=== PATIENT | female | born 1980 | race Caucasian/White ===

== ENCOUNTER 2018-06-13 15:32 | Emergency (ER) | payer OTHER, SELFPAY ==
[2018-06-13 15:45] VITALS: BP 153/100; PULSE 88; RESP 13; TEMP 36.1; O2SAT 98
--- NOTE | 2018-06-13 16:28 | PC.NURSE ---
pt reports, cutting a ziptie on the bike, pocket knife slipped and obtained left hand ,below left thumb, with bleeding, preassure drsg applied with elevation, distal cms intact. family at .
--- NOTE | 2018-06-13 17:07 | ED_ITS ---
HPI - Wound/Laceration General Chief Complaint: Wound/Laceration Stated Complaint: accidentally stabbed hand with knife Time Seen by Provider: 06/13/18 17:07 Source: patient Mode of arrival: ambulatory Limitations: no limitations History of Present Illness HPI narrative: 38-year-old female [id number] here for evaluation of a laceration to her left hand. Patient states she was using a knife to cut a zip tie off her bike when it slipped and cut her in the hand. She does not know when her last tetanus shot was. Wrapped it and came to the emergency department for evaluation. Related Data Previous Rx's Medication Instructions Recorded cephalexin [Keflex] 500 mg PO QID 5 Days #20 cap 06/13/18 hydrocodone-acetaminophen [[place]] 1 tab PO Q4-6H PRN #10 tab 06/13/18 Allergies Allergy/AdvReac Type Severity Reaction Status Date / Time No Known Drug Allergies Allergy Unverified 06/02/18 14:01 Review of Systems Constitutional Denies fever(s) and Denies weakness Cardiovascular Denies chest pain and Denies dyspnea Respiratory Denies dyspnea Gastrointestinal Gastrointestinal: Denies abdominal pain Musculoskeletal Denies myalgias and Denies arthralgias Integumentary/Breasts Comments: Cut to the left hand Neurologic Denies paresthesias and Denies weakness Hematologic/Lymphatic Comments: Not on anticoagulation PFSH Medical History Diverticulitis large intestine (Acute) Hx of hysterectomy (Resolved) Surgical History History of (Resolved) History of hysterectomy for benign disease (Resolved) History of tonsillectomy (Resolved) Hx of LASIK (Resolved) Hx of LASIK (Resolved) Hx of section (Resolved) Hx of tonsillectomy (Resolved) Social History marital status: household members: spouse and children occupational status: employed Smoking Status: Never smoker alcohol intake: current substance use type: does not use Exam Initial Vital Signs Initial Vital Signs: Vital Signs Temperature 97 F L 06/13/18 15:45 Pulse Rate 88 06/13/18 15:45 Respiratory Rate 13 06/13/18 15:45 Blood Pressure 153/100 H 06/13/18 15:45 Pulse Oximetry 98 06/13/18 15:45 Const General: cooperative, healthy appearing, comfortable, well developed, well groomed and No acute distress Orientation: alert, awake and oriented x3 HENMT Head: normal to inspection and normocephalic Cardio Pulses: radial pulses present on the left Skin Other: 3 cm laceration on the dorsum of the left hand in between the thumb and the index finger. Does have pulsating bleeding. Neuro General: alert, awake and oriented x3 Sensory Exam: no sensory deficits noted Extrem Other: Left wrist unremarkable. Patient able to flex and extend both active and passive and against resistance to the MCP joint and IP joint of the thumb MCP GI p.m. PIP joint of the index finger. Psych Appearance: grossly normal and well kempt Procedures Laceration Repair Laceration 1: Site: hand Side (If applicable): left Size (cm): 2 Description: linear Depth: involves muscle layer Local Anesthetic: lidocaine 1% and with epi Amount of anesthesia used (mL): 6 Pre-repair: wound explored and deep structures intact Skin layer closed with: nylon Size (cm): 5-0 Number of sutures: 5 Technique: simple, interrupted Course Orders Ordered: Discontinued Medications Diphtheria/Tetanus/Acell Pertussis (Adacel) 0.5 ml IM .ONCE ONE Stop: 06/13/18 18:12 Vital Signs - 8 hr 06/13/18 15:45 06/13/18 18:19 Temperature 97 F L Pulse Rate 88 84 Respiratory Rate 13 16 Blood Pressure 153/100 H Blood Pressure [Right Arm] 135/85 Pulse Oximetry 98 99 MDM - Wound/Laceration MDM Narrative Medical decision making narrative: Patient is neurovascularly intact. Initially after placement of Gel-Foam the bleeding which did appear to be arterial had completely stopped. Stitches were placed however when the patient moved her thumb it did start bleeding again. The initial stitches were removed and extensive exploration of the wound was performed without success and finding the source of the bleeding. More Gel-Foam was placed and a pressure dressing was placed over the skin for approximately 20 min. After this a portion of the Gel-Foam was removed and there was no active bleeding. The skin was closed with 5 nylon stitches as described above. There was a small amount of Gelfoam left in the wound. Another pressure dressing was applied. Patient was observed in the emergency department for approximately another hour without continued bleeding. Will send the patient home on antibiotics due to the exploration. Was sent home with pain medication. Patient given return precautions. She expressed understanding and agreement plan. Discharge Plan Departure Patient Disposition: Home Clinical Impression: Laceration Instructions: DI for Laceration Repair Activity Restrictions/Additional Instructions: The stitches do need to be removed in 7-10 days. Keep the dressing on like we discussed. Return to the emergency department like we discussed. If it bleeds through the dressing this evening I do recommend he return to the emergency department. Take the antibiotics as directed. Contact her primary care doctor for follow-up. Prescriptions: New hydrocodone-acetaminophen [[place]] 5-325 mg tablet 1 tab PO Q4-6H PRN (Reason: pain) Qty: 10 RF: 0 cephalexin [Keflex] 500 mg capsule 500 mg PO QID 5 Days Qty: 20 RF: 0
--- NOTE | 2018-06-13 18:13 | PC.NURSE ---
arterial bleed left hand, surgifoam used, sutured with internal and external, with movement, pt continue to have squirting bleeding, reopened sutured, suctions and exploration by dr nye, cauterized, surgifoam reapplied with coban at this time. estimated blood lost 100ml while in er. pt denies dizziness or shortness of breath, felt cold, warm blanket applied. skin warm dry pink. family at bs.
[2018-06-13 18:19] VITALS: BP 135/85; PULSE 84; RESP 16; O2SAT 99
--- NOTE | 2018-06-13 18:20 | PC.NURSE ---
left hand with preassure dressing.
[2018-06-13] MEDS: TET,DIPH,PERTUSS(ACELL),VAC/PF 0.5 ML SYRINGE IM (19:18)
[2018-06-13 19:42] VITALS: BP 126/75; PULSE 87; RESP 18; O2SAT 99
[2018-06-13] MEDS: HYDROCODONE/ACET 5/325 PREPACK 1 BOTTLE MISC (20:33)
[2018-06-13] MEDS: cephALEXin 250 MG CAPSULE 500 MG PO (20:33)
--- NOTE | 2018-06-14 08:47 | PC.NURSE ---
pt came in for recheck per dr nye, stand by assist with dr nye, suture intact , hemostasis, some swelling and echymosis, full range of motion, distal cms intact. left hand washed with hibiclens, running water, dried. bacitracin ointment applied with non stick telfa with large kerlix and tape. reviewed s\sxs of infection, verbal understanding instructions, return prn.
== END 2018-06-13 20:40 | disposition home or self-care (01) ==
PROVIDERS: Emergency Provider Emergency Medicine
DX: S61.412A Laceration without foreign body of left hand, initial encounter (principal); W26.0XXA Contact with knife, initial encounter
CPT/HCPCS: 12001; 90471; 99283; 90715

== ENCOUNTER 2018-06-22 14:40 | Emergency (ER) | payer OTHER, SELFPAY ==
[2018-06-22 14:48] VITALS: BP 156/107; PULSE 85; RESP 14; TEMP 37; O2SAT 99
--- NOTE | 2018-06-22 14:56 | ED.SKABFB ---
HPI - Skin/Abscess/Foreign Bdy General Chief complaint: Skin/Abscess/Foreign Body Stated complaint: stitch removal Time Seen by Provider: 06/22/18 14:56 Source: patient Mode of arrival: ambulatory Limitations: no limitations History of Present Illness HPI narrative: Patient is here for suture removal of the laceration to her left hand Related Data Allergies Allergy/AdvReac Type Severity Reaction Status Date / Time No Known Drug Allergies Allergy Unverified 06/19/18 14:40 Review of Systems Constitutional Denies fever(s) Integumentary/Breasts Comments: Laceration healing well Hematologic/Lymphatic Comments: Not on anticoagulation PFSH Medical History Diverticulitis large intestine (Acute) Hx of hysterectomy (Resolved) Surgical History History of (Resolved) History of hysterectomy for benign disease (Resolved) History of tonsillectomy (Resolved) Hx of LASIK (Resolved) Hx of LASIK (Resolved) Hx of section (Resolved) Hx of tonsillectomy (Resolved) Family History Father Hypertension Mother Hypertension Heart disease Diabetes mellitus Social History marital status: household members: spouse and children occupational status: employed Smoking Status: Never smoker alcohol intake: current substance use type: does not use Social History marital status: household members: spouse and children occupational status: employed Smoking Status: Never smoker alcohol intake: current substance use type: does not use Exam Initial Vital Signs Initial Vital Signs: Vital Signs Temperature 98.6 F 06/22/18 14:48 Pulse Rate 85 06/22/18 14:48 Respiratory Rate 14 06/22/18 14:48 Blood Pressure 156/107 H 06/22/18 14:48 Pulse Oximetry 99 06/22/18 14:48 Const General: cooperative, comfortable, well developed, well groomed and No acute distress Resp Effort & Inspection: normal respiratory effort Skin Other: Skin looks well. No surrounding erythema. No signs of infection. Course Vital Signs - 8 hr 06/22/18 14:48 Temperature 98.6 F Pulse Rate 85 Respiratory Rate 14 Blood Pressure 156/107 H Pulse Oximetry 99 MDM - Skin/Abscess/Foreign Bdy MDM Narrative Medical decision making narrative: No signs of infection. Sutures were removed by nursing staff. Patient was given return precautions. She expressed understanding and agreement with plan. Discharge Plan Departure Patient Disposition: Home Clinical Impression: Encounter for removal of sutures Instructions: DI for Suture Removal Activity Restrictions/Additional Instructions: You can use your thumb as much as possible to help with the stiffness. Return to the emergency department for any new or worsening symptoms
--- NOTE | 2018-06-22 15:11 | PC.NURSE ---
Pt w/ well healed suture line on left hand. Dr. Ceballos evaluated and cleared for suture removal. Removed sutures w/o difficulty. Added steri strips for support.
== END 2018-06-22 15:13 | disposition home or self-care (01) ==
PROVIDERS: Emergency Provider Emergency Medicine
DX: Z48.02 Encounter for removal of sutures (principal)
CPT/HCPCS: 99281; 99282

== ENCOUNTER → 2020-02-05 08:40 | Outpatient (CLI) | payer OTHER, SELFPAY ==
[2020-02-06 16:03] LABS: COVID19 Sendout Not Detected (Not Detect)
== END ==
PROVIDERS: Visit Provider Physician Assistant
DX: Z11.59 Encounter for screening for other viral diseases (principal)
CPT/HCPCS: 87635

== ENCOUNTER 2020-02-08 07:41 | Day surgery (SDC) | payer OTHER, SELFPAY ==
--- NOTE | 2020-02-08 | PATH_ITS ---
[facility] Accession Number: [id number] . 01 Material submitted: . colon - POLYP AT 20CM . 01 Clinical history: . SCREENING COLONOSCOPY . 02 Diagnosis: Colon, Polyp at 20 cm, Biopsy: Tubular adenoma. The excision appears complete. MRV 02/11/2020 1040 Local . 02 Electronically signed: . Marisa Dobbs MD, Pathologist NPI- [id number] . 01 Gross description: . POLYP AT 20CM: Received in formalin is 1 fragment(s) of hall, soft tissue measuring 1.2 x 0.6 x 1.0 cm which is trisected and submitted entirely in 1 cassette(s) /HARRIET 02/10/2020 0049 Local . 02 Pathologist provided ICD-10: D12.6 . 02 CPT . 549503 Performed at: 01 [facility] [address] [id number] MD Zak Araujo MD Phone: [phone] Performed at: [facility] [address] [place], [place] [id number] MD Marisa Dobbs MD Phone: [phone]
[2020-02-08 08:00] VITALS: BP 113/77; PULSE 72; RESP 18; TEMP 36.4; O2SAT 98; BMI 38.7
--- NOTE | 2020-02-08 09:05 | P.HP_ITS ---
History of Present Illness History of Present Illness Date Patient Seen: 02/08/20 Time Patient Seen: 09:05 Chief complaint: SCREENING COLONOSCOPY Narrative: The patient is a woman who has had multiple bouts of diverticulitis. She has had a scope done 5 or 6 years ago. She believes 4 polyps were removed at that time. She is here for colonoscopy because of her history of polyps and because we need to make sure there is no neoplastic process involved with her co lonic inflammation Patient History Medical History Diverticulitis large intestine (Acute) Surgical History History of (Resolved) History of hysterectomy for benign disease (Resolved) History of tonsillectomy (Resolved) Hx of section (Resolved) Hx of hysterectomy (Resolved) Hx of LASIK (Resolved) Hx of LASIK (Resolved) Hx of tonsillectomy (Resolved) Family & Social History Family History Father Hypertension Mother Hypertension Heart disease Diabetes mellitus Social History: household members spouse,children Tobacco & Substance use: Smoking Status Never smoker alcohol intake current alcohol intake frequency a few times a week Substance Use Type does not use Meds Home Medications and Allergies Home Medications Medication Instructions Recorded Confirmed Type No Known Home Medications 02/08/20 02/08/20 History Allergies Allergy/AdvReac Type Severity Reaction Status Date / Time No Known Drug Allergies Allergy Verified 02/08/20 07:58 Review of Systems Review of Systems ROS: Yes All systems reviewed with the patient and are negative except as otherwise documented Exam Vital Signs (past 8 hours): - 02/08/20 08:00 Temperature 97.6 F Pulse Rate 72 Respiratory Rate 18 Blood Pressure 113/77 Pulse Oximetry 98 Oxygen Delivery Method Room Air Narrative Exam Narrative: Pleasant cooperative patient no apparent distress. Lungs are clear to auscultation. No rales or rhonchi. Heart regular rate and rhythm no murmur gallop. Abdomen is soft nontender without mass. No obvious hernias. Patient is alert and oriented x3. Assessment & Plan Assessment & Plan narrative: The patient for a screening colonoscopy. I have discussed the procedure with them. Risks of bleeding, perforation which would necessitate major operation, failure to find remove all lesions, the potential tattoo were all discussed. All questions were answered. They wished to proceed.
--- NOTE | 2020-02-08 09:07 | PM.PREOP ---
Pre-operative Note COVID-19 COVID-19 status: Negative Result date/Date tested (Pos, Neg/Pending): 02/05/20 Interval Note History & Physical reviewed/Exam performed by Physician: Yes Changes to H&P: No ASA Class (for procedural sedation): I
[2020-02-08] MEDS: MIDAZOLAM 5 MG/5 ML VIAL IV (09:10)
[2020-02-08] MEDS: fentaNYL 250 MCG/5 ML INJ IV (09:10)
[2020-02-08 09:44] VITALS: BP 118/74; PULSE 71; RESP 15; TEMP 36.8; O2SAT 97
--- NOTE | 2020-02-08 09:46 | PM.OP.ENDO ---
Operative Date/Time/Diagnoses Date of procedure: 02/08/20 Time of procedure: 09:46 Pre-op diagnosis: History of polyps. History of diverticulitis multiple episodes. Last scope about 5 years ago. Post-op diagnosis: same (I removed 1 large polyp at 20 cm from the anal verge. It was on of distinct stalk. I could not get beyond 40 due to tortuosity and narrowing.) Procedure & Clinicians Study performed: Flexible sigmoidoscopy(colonoscopy started but abandoned) with hot snare polypectomy Same procedure as scheduled: Yes Indications: Patient with history of polyps and diverticulitis. Surgeon: Ricco Duncan Procedure Notes SCOAP/Timeout: Perform Procedure in detail: Patient is placed in left lateral decubitus position underwent IV sedation directed by the surgeon consisting of fentanyl and Versed. Digital exam was unremarkable. The scope was inserted and advanced to about 40 cm. The going was quite slow and the colon to this point was quite tortuous. I could not get beyond this however. I could not distend the colon adequately and the turns were such that I could not negotiate the. I suspect this is due to the nature of her diverticulitis. The patient was repositioned in still could get no further. After attempting for about 20 minutes to get beyond this point I backed the scope out. I encountered a very large polyp at 20 cm and snared it through its stalk. It appeared to be completely removed. The scope was removed and the patient appeared to tolerate the procedure well. Scope withdrawal time: Not applicable Sedation minutes: 28 Findings: diverticulitis (History of multiple episodes), diverticulosis and polyp Specimen(s): other (Polyp) Complications: none Post-procedure Recommendations: Other recommendation (Will schedule barium enema in several weeks once polypectomy site is healed) Follow up: weeks (4 after barium enema) Disposition: PACU
--- NOTE | 2020-02-08 09:48 | SUR.PHASEI ---
Pt received to PACU after MAC. Airway patent, self maintained. Report from MINNIE Catherine.
[2020-02-08 09:49] VITALS: BP 107/77; PULSE 90; RESP 14; O2SAT 98
[2020-02-08 09:54] VITALS: BP 117/78; PULSE 70; RESP 15; O2SAT 99
[2020-02-08 10:01] VITALS: BP 130/89; PULSE 77; RESP 13; TEMP 37; O2SAT 99
[2020-02-08 10:06] VITALS: BP 130/89; PULSE 67; RESP 11; TEMP 37; O2SAT 99
--- NOTE | 2020-02-08 14:43 | SUR.PHASEII ---
1018 late entry 900 ml LR infused
== END 2020-02-08 10:25 | disposition home or self-care (01) ==
PROVIDERS: Referring Provider Specialist; Visit Provider Specialist
PROC: 0DJD8ZZ Inspection of Lower Intestinal Tract, Via Natural or Artificial Opening Endoscopic (ICD-10-PCS; CPT 45378; principal; 2020-02-08 08:30)
DX: Z12.11 Encounter for screening for malignant neoplasm of colon (principal); Z86.010 Personal history of colon polyps; K57.30 Diverticulosis of large intestine without perforation or abscess without bleeding; K57.32 Diverticulitis of large intestine without perforation or abscess without bleeding; D12.6 Benign neoplasm of colon, unspecified
CPT/HCPCS: 45385; 99152; 99153; J2250; J3010

== ENCOUNTER → 2020-03-01 10:03 | Outpatient (CLI) | payer OTHER, SELFPAY ==
--- NOTE | 2020-03-01 10:04 | DI.RAD.S_ITS ---
PROCEDURE: FL BARIUM ENEMA W AIR CONTRAST INDICATIONS: incomplete colonoscopy due to sigmoid diverticular disease COMPARISON: None. FINDINGS: KUB: Pre-procedural derrick boat leverman film demonstrates a normal bowel gas pattern. No suspicious abdominal calcifications. Visualized solid organ contours are normal in size. No suspicious bony lesions. Colon: There is adequate air-contrast opacification from the rectum to the cecum. No evidence for strictures, ulcers, polyps, or masses are seen. Haustral folds are normal in thickness throughout. There are numerous scattered colonic diverticula noted in the descending colon and sigmoid colon and a scant amount of diverticula near the hepatic flexure. IMPRESSION: Numerous scattered descending and sigmoid colon diverticula with scant diverticula noted near the hepatic flexure. Otherwise, negative double-contrast barium enema. Dictated by: Thuan Hodgson M.D. on 03/01/2020 at 12:42 Approved by: Thuan Hodgson M.D. on 03/01/2020 at 12:59
== END ==
PROVIDERS: Referring Provider Specialist; Visit Provider Specialist
DX: Z12.11 Encounter for screening for malignant neoplasm of colon (principal); K57.32 Diverticulitis of large intestine without perforation or abscess without bleeding; Z86.010 Personal history of colon polyps
CPT/HCPCS: 74280

== ENCOUNTER → 2020-03-31 09:02 | Outpatient (CLI) | payer OTHER, SELFPAY ==
[2020-03-31 10:39] LABS: COVID19 -Nasal RAPID Negative (Negative)
== END ==
PROVIDERS: Visit Provider Specialist
DX: Z11.59 Encounter for screening for other viral diseases (principal); Z01.812 Encounter for preprocedural laboratory examination
CPT/HCPCS: 87635; C9803

== ENCOUNTER 2020-04-03 06:41 | Inpatient (IN) | payer OTHER, SELFPAY ==
[2020-03-28 09:55] VITALS: BMI 39.3
[2020-04-03] VITALS (14 sets, daily range): BP systolic 111–130; BP diastolic 64–91; PULSE 74–114; RESP 10–29; TEMP 35.7–36.8; O2SAT 95–100; BMI 39.3
--- NOTE | 2020-04-03 | PATH_ITS ---
[facility] Accession Number: [id number] . 01 Material submitted: . PART A: colon - SIGMOID COLON PART B: colon - ANASTOMOSIS RING . 02 Diagnosis: A. Sigmoid Colon, Sigmoidectomy: Segments of colon with diverticulosis and serositis. No evidence of neoplasm. . B. Anastomotic Ring, Excision: Colonic tissue with mild serositis. No evidence of neoplasm. [facility] 04/05/2020 1421 Local . 02 Electronically signed: . Grady Peoples MD, PhD, Pathologist NPI- [id number] . 01 Gross description: . A. Received in formalin, labeled sigmoid colon, and consists of two portions of colon measuring 4.0 cm in length by 2.0 cm in diameter and 8.0 cm in length by 2.8 cm in diameter. The smaller portion of colon has one open and one stapled margin, and the longer portion has two stapled margins. The serosa is hall-pink and smooth with a moderate amount of attached hall-yellow lobulated adipose tissue. Opening reveals a hall-pink mucosa with normal mucosal folds. Also, uncomplicated diverticula are identified within the larger piece of colon. The wall thickness measures up to 0.4 cm. No lymph nodes are identified within the attached adipose tissue. Net Programmer Analyst sections are submitted. . A1 - opened (blue) and stapled (black) margins from smaller portion of colon, patient care representative perpendicular sections. A2 - patient care representative smaller portion of colon. A3 - patient care representative perpendicular sections of larger portion of colon, stapled margins (blue and black). A4-A5 - patient care representative diverticula from larger portion of colon. . B. Received in formalin, labeled anastomotic rings, and consists of two annular portions of bowel with a hall-pink mucosa measuring 2.0 x 1.5 x 1.2 cm and 2.2 x 1.5 x 1.2 cm. Net Programmer Analyst sections are submitted in cassette B1. ([id number]) /MRV 04/04/2020 1218 Local . 02 Pathologist provided ICD-10: K57.32 . 02 CPT . 222776, [id number] Performed at: 01 [facility] [address] [id number] MD Zak Araujo MD Phone: [phone] Performed at: 02 [facility] [address] [place], [place] [id number] MD Marisa Dobbs MD Phone: [phone]
[2020-04-03] MEDS: LACTATED RINGERS 1,000 ML 42 ML IV ×4 (07:37→14:01)
[2020-04-03] MEDS: PIPERACILLIN-TAZO 3.375 GM/50 ML FROZ.PIGGY IV ×2 (08:00→12:52)
[2020-04-03] MEDS: ACETAMINOPHEN IV 1,000 MG/100 ML VIAL 400 MG IV (08:10)
--- NOTE | 2020-04-03 08:13 | PM.PREOP ---
Pre-operative Note Interval Note History & Physical reviewed/Exam performed by Physician: Yes Changes to H&P: No
--- NOTE | 2020-04-03 08:19 | PM.PREOP ---
Pre-operative Note COVID-19 COVID-19 status: Negative Result date/Date tested (Pos, Neg/Pending): 03/31/20 Interval Note History & Physical reviewed/Exam performed by Physician: Yes Changes to H&P: No
--- NOTE | 2020-04-03 08:24 | PM.AN.REGBLK ---
Regional Block Pre-procedure Procedure: Continuous Epidural for Post-operative Pain Management Attending OB provider: Ricco Duncan PMH/ROS narrative: 40 y/o female with chronic/recurrent diverticulitis for lap (poss open) partial colon resection. PMH significant only for mild-intermittent asthma with rare albuterol use. Hx: No personal or family history of anesthesia problems. PSH/Anesthesia history narrative: CS x 2, Hysterectomy, T&A ASA Class: II Medications: Current Medications Generic Name Dose Route Start Last Admin Trade Name Freq PRN Reason Stop Dose Admin Lactated Ringer's 1,000 mls @ 42 mls/hr 04/03/20 07:30 04/03/20 07:37 Lactated Ringers IV 42 mls/hr CONT KHLOE Administration Allergies: Allergies Allergy/AdvReac Type Severity Reaction Status Date / Time No Known Drug Allergies Allergy Verified 04/03/20 07:16 Procedure Insertion date: 04/03/20 Insertion time: 08:00 Prep/Local: betadine x3 Interspace: T11-12 Patient position: sitting Needle: 18 gauge [place] Loss of resistance with: saline GIBSON at (cm): 5 Catheter placed at SKIN (cm): 11 Catheter in SPACE (cm): 6 Insertion: No CSF, No Blood, No Paresthesia with insertion, No Paresthesia with injection and No Test dose reaction Initial Medications TEST DOSE time: 08:03 TEST DOSE: 1.5% lidocaine with epinephrine 1:200k (mL): 3 BOLUS DOSE time: 09:20 BOLUS DOSE (mL): 5 BOLUS DOSE med: 0.25% bupivacaine Infusion INFUSION: 0.125% bupivacaine and with fentanyl 2 mcg/mL Initial rate (mL/hr): 6 Subsequent interventions: infusion started at 10:21 04/04 decreased infusion from 6ml/h to 4. Pt comfortable. 04/05 increased from 4 to 5mL/h. Comfortable with PCEA boluses. LEFT-sided block, T9-L3. Post-procedure Anesthesia time START: 07:45 Anesthesia time END: 08:06 Post-procedure Anesthesia Assessment: Yes CV function: HR/BP stable, Yes Resp function: RR/sat/airway adequate, Yes Post-op hydration adequate, Yes Pain control adequate, Yes Nausea & vomiting absent, Yes Mental status appropriate and No Anesthesia complications
--- NOTE | 2020-04-03 08:42 | SUR.OPER ---
Lithotomy on padded OR bed. [place] Pad Positioner under torso. Head on pillow, arms padded and tucked at sides. Legs secured in padded yellow fins stirrups.
--- NOTE | 2020-04-03 09:26 | P.OP_ITS ---
Operative Date/Time/Diagnoses Date of procedure: 04/03/20 Time of procedure: 09:26 Pre-op diagnosis: Complicated diverticulitis Post-op diagnosis: same Procedure & Clinicians Procedure: 1. Cystoscopy and placement bilateral ureteral localizing stents. Same procedure as scheduled: Yes Indications: Complicated diverticulitis Surgeon: Laurita Atwood Click Yes if Unassisted: Yes Anesthesia Type: General Operative Notes Findings: 1. Urethra-normal caliber and location. 2. Bladder-urothelium normal throughout. Normal position configuration of ureteral orifices bilaterally. Closure Type: not applicable Specimen(s): none sent Estimated Blood Loss (mL): 0 Blood products transfused: none Tourniquet time (min): 0 Procedure in detail: The patient was positioned supine following placement of epidural anesthesia. General anesthesia was then induced. The patient was then repositioned in semi lithotomy and the lower abdomen, genitalia, and perineum were prepped and draped in sterile fashion. The 25 [place] panendoscope was then passed lower urinary tract with findings as described above. A red labeled 5 [place] whistle-tip catheter was then advanced into the right collecting system under direct visualization. Next a blue labeled 5 [place] whistle-tip catheter was advanced into the left upper collecting system. The panendoscope was then backloaded off the ureteral stents. A 16 [place] Pineda catheter was then inserted into the bladder, the balloon inflated 10 cc, and the contents of bladder drained. The 2 whistle-tip catheters were then brought from outside to within the female flange of the Pineda catheter in usual fashion. They were then secured to the Pineda catheter itself using Op site adhesive dressings. The Pineda catheter was then placed to gravity drainage. Dr. Duncan then proceeded with his planned operative intervention, the details of which can be found in his operative report. Complications: none Post-operative Condition: stable Disposition: PACU Plan for aftercare: Acute care
[2020-04-03] MEDS: BUPIVACAINE 0.5% (PF) VIAL 30 ML INJ (09:29)
--- NOTE | 2020-04-03 11:12 | SUR.OPER ---
Chetan Gutierrez RN relief 30 min at 1100
--- NOTE | 2020-04-03 14:51 | P.OP_ITS ---
Operative Date/Time/Diagnoses Date of procedure: 04/03/20 Time of procedure: 14:51 Pre-op diagnosis: Multiple episodes of diverticulitis. Post-op diagnosis: same Procedure & Clinicians Procedure: Laparoscopic sigmoid colon resection with colo colo anastomosis Same procedure as scheduled: Yes Indications: Patient has had multiple episodes of diverticulitis. They are becoming more frequent and progressing and she would like to have that segment of her colon removed because it is completely disrupting her life Anesthesia Type: General Operative Notes Findings: Tortuous sigmoid colon with adhesions to surrounding structures. Soft descending colon normal in appearance with diverticulosis. Healthy viable distal sigmoid and rectum. Closure Type: primary Specimen(s): other (Sigmoid colon in 2 Segments) Prosthetic devices, grafts, tissues, transplants, or devices: None Applied: catheter (Pineda) Estimated Blood Loss (mL): 30 Blood products transfused: none Procedure in detail: An epidural catheter was placed prior to induction. This was for postop pain control. The patient is placed supine on the operating room table and underwent general endotracheal anesthesia. She was placed in lithotomy and stents were placed in her ureters by the urologist. He will dictate a separate note. She was then placed in low lithotomy and prepped and draped in the usual fashion. Small incision was made beneath the umbilicus and carried down under direct vision in the peritoneal cavity. Stay sutures of 0 Vicryl were placed in the fascia. In this on cannula was inserted. The abdomen is insufflated. Four additional ports were placed. One in me in the upper mid abdomen 1 in the left mid abdomen 1 in the right lower abdomen and 1 in the left lower abdomen. Adhesions of the sigmoid colon to the lateral sidewall were take n down using a Harmonic scalpel. Attachments of the left colon to the sidewall were also taken down mobilizing the splenic flexure. When I felt that the proximal colon was mobile enough we divided the normal appearing proximal sigmoid with a left scopic stapling device. Using them on X couple we dissected the mesentery close to the colon wall and dissected below the abnormal appearing segment of the colon. A QUIN stapler was fired across the distal portion. We made a small incision in the lower abdomen and extracted the colon specimen. We delivered the proximal cut end of the colon into this small incision and cleared its edge. This a bowel clamp was placed across it the staple line removed. Using sizers we could not get anything bigger than a 25 into this transected colon. The lumen was rather small all things considered. There was no inflammation of the wall either. We dissected a clear area of colon wall where there were no diverticuli visible. A 25 EEA anvil was inserted into the proximal end of the colon the. The colon edge was oversewn with a running 2 0 Prolene. And then a tie was placed to cinched that down further to the anvil stem. The midline fascia was closed to create a air tight seal in the abdomen is re-insufflated. I could then see the pelvis and the transected distal sigmoid stump. An EEA device was attempted to be inserted but it was clear was not coming anywhere near the end of the colon. A rigid proctoscope followed by occult flexible colonoscope was inserted to examine the colon and it was quite clear that there was a lot of tortuosity in this remaining segment that would have to be straightened and probably a portion removed. The ports were removed the suture line and the fascia was removed and the incision extended to gain access to the pelvis. Adhesions of the distal segment of the sigmoid were divided principally using cautery with careful dissection. The colon was then easily straightened and brought up above the pelvic brim. Visualizing on the inside we chose to resect further down on this sigmoid colon to below the pelvic brim. The mesentery was divided with a Harmonic scalpel. The colon was transected with a TA linear stapling device. The staple line was tested for with an air-leak test using the colonoscope and it appeared to be air tight. The 25 EEA was inserted through the rectum and brought near the end of the colon. I decided to come through the anterior wall and create a and to side anastomosis keeping distance from the staple line used to transect the colon. Then there would be no ischemia between the circular staple in the linear stapled and. The the anvil was inserted on to the spike which had come through the anterior colonic wall. The device was closed in a stapled anastomosis creat ed. It was tested by clamping above the staple line inserting air through the colonoscope. We could also visualize the open anastomosis. There was no air leak. Both donuts were complete. Everything appeared to be viable. The pelvis was irrigated and suctioned free of fluid. The fascia at the midline was closed a running number 0 PDS double-stranded suture. The subcu was loosely reapproximated with 3-0 Vicryl. The skin was closed a running 4-0 Vicryl subcuticular stitch and Steri-Strips in all areas. Attention was turned to the anus. There were 2 skin tags that the concerned the patient. These were removed with cautery and the defect closed with a running 4-0 Vicryl suture line. Patient tolerated the procedure well she was awakened extubated taken recovery area in good condition. Complications: none Post-operative Condition: stable Disposition: PACU Plan for aftercare: In patient care
--- NOTE | 2020-04-03 14:56 | PT-IP ANOTE ---
PT orders received but pt is still in the operating room. Will attempt to see pt morning of 04/04/20.
--- NOTE | 2020-04-03 15:07 | SUR.PHASEI ---
1451 to PACU from OR, very drowsy, attempting to speak, speech slurred. Denies pain/nausea, explained PACU and told her that she could sleep. No non-verbal evidence of pain.
--- NOTE | 2020-04-03 15:12 | SUR.PHASEI ---
aroused spontaneously, asked how long the surgery was. Continues to deny pain/nausea. Skin warm and dry, resp even and regular. Belly was round and soft upon admit to PACU.
--- NOTE | 2020-04-03 15:23 | SUR.PHASEI ---
Report called to ENGAGEMENT LIAISON. Pt awake and comfortable.
[2020-04-03] MEDS: FENT 2MCG/ML BUPIV 0.125% EPI 200 MCG/100 ML PLAST..BAG 6 MCG EPIDURAL ×2 (15:40→20:49)
--- NOTE | 2020-04-03 15:49 | SUR.PHASEI ---
Addendum entered by Dee Dee Kellogg R.N. 04/03/20 15:50: Epidural pump has continued operating as set by Dr. Cross. Settings reviewed with GRIP WRAPPER Original Note: 1535 to room 226, bed down and locked, call light within reach. SCD's on. VSS. Epidural dressing CDI, well secured, abdominal dressing and bandaids remain CDI, belly soft. Pt awake, oriented, john pain/nausea. Clothing bag to the room with her.
[2020-04-03] MEDS: LACTATED RINGERS 1,000 ML 125 ML IV (16:23)
--- NOTE | 2020-04-03 16:57 | PC.NURSE ---
Admission Note: Pt arrives from PACU s/p sigmoid colectomy. Pt arrives with epidural in place, secured to L shoulder and secured to back with tegaderm. Small amount of blood on foam dressing. Fentanyl/bupivicaine epidural is running at 6 ml/hr continuous, demand dose is 3 ml q 15 min, 20 ml 1 hour limit. Pt denies pain. Pt with numbness from just above knees to just below nipple line. Pt arrives on RA, SPO2 99%. Denies SOB, lungs CTA with diminished bases. Encouraged to deep breathe. IS at bedside, pt instructed on deep breathing techniques. Pt arrives in NSR, HR 80-100. VSS, BP 117/80 on arrival. Denies chest pain or other discomfort at this time. R hand [address] and functioning, LR at 125 started and infusing. Pt arrives from PACU s/p sigmoid colectomy. 4 x lap sites, midline incision with gauze and tegaderm postop dressing intact without drainage. Pt denies nausea, tolerating sips and chips. No appreciable BTs at this time. Discussed careful diet progression with pt today, will start CLD in am per MD orders. Pt arrives with indwelling catheter. Urine is bright pink, stents were placed and removed during surgery. Pt notified that this was an expected finding. Urine is otherwise clear. 450 out prior to admission to ICU from PACU. Call light in place, bed alarm on and functioning. Pt instructed to call for assistance with ambulation (also instructed that pt will not be ambulating at this time d/t epidural block extending to quadriceps muscles). Will continue to monitor, notify MD with changes.
[2020-04-04] VITALS (7 sets, daily range): BP systolic 104–179; BP diastolic 61–88; PULSE 75–106; RESP 15–21; TEMP 35.8–36.8; O2SAT 93–97
[2020-04-04] MEDS: LACTATED RINGERS 1,000 ML 125 ML IV (00:21)
[2020-04-04 05:23] LABS: Add Manual Diff / Slide Review NO; Basophils Absolute Auto 0 /uL (0-100); Basophils Percent Auto 0.3 % (0-2); Eosinophils Absolute Auto 0 /uL (0-450); Hematocrit 35.7 % (36-46); Lymphocytes Absolute Auto 1500 /uL (1100-4500); Mean Corpuscular HGB Conc 33.6 % (30-36); Mean Corpuscular Hemoglobin 31.5 PG (26-34); Mean Corpuscular Volume 93.9 fL (80-100); Monocytes Absolute Auto 800 /uL (0-900); Monocytes Percent Auto 4.7 % (3-14); Neutrophils Absolute Auto 14000 /uL (1500-7000); Platelet Count 282 X10^3/uL (150-400); Red Cell Distribution Width 13.1 % (11.6-14.8); White Blood Cell Count 16.3 X10^3/uL (4.5-11.0)
[2020-04-04 05:31] LABS: Alanine Aminotransferase 17 IU/L (<35); Albumin 2.8 g/dL (3.5-5.0); Albumin Globulin Ratio 1.1 (1.0-2.8); Alkaline Phosphatase 51 U/L (38-126); Aspartate Aminotransferase 38 IU/L (14-36); BUN Creatinine Ratio 12.2 (6-22); Bilirubin Total 0.4 mg/dL (0.2-1.3); Blood Urea Nitrogen 9 mg/dL (7-17); Carbon Dioxide 26 mmol/L (22-32); Chloride 109 mmol/L (98-107); Estimated Glomerular Filt Rate > 60.0 mL/min (>60); Globulin 2.5 g/dL (1.7-4.1); Glucose 99 mg/dL (70-100); HEMOLYSIS < 15 (0-50); Sodium 135 mmol/L (137-145); Total Protein 5.3 g/dL (6.3-8.2)
--- NOTE | 2020-04-04 06:14 | PC.NURSE ---
night shift supervisor note: Patient has denied pain throughout shift but states she can start to feel like she is sore. Educated patient on COVER CUTTER dose through epidural, but patient declined. Patient has been turning in bed independently and has been able to bend, move and lift legs. Patient originally stated she felt numb around nipple line, but since has decreased to costal region. She states she can move left leg a lot more than she could last night. Epidural site inspected to see if there has been any shifting in line/tubing - no shifting noted. Dressing remains intact and secured to patient's back. Again, patient has declined pain. VSS throughout shift, on RA. IV fluids infusing. Pineda cath in place with good urine output throughout shift. Patient's present at bedside. Call light in reach. Patient able to make needs/concerns known. Will continue to monitor closely.
[2020-04-04] MEDS: LACTATED RINGERS 1,000 ML 100 ML IV ×2 (09:08→17:13)
--- NOTE | 2020-04-04 09:15 | CM.DANOTE ---
DCP: Case received, EMR reviewed and met with patient. , Rodo, was also in the room. Introduced self and role. Was able to obtain information from patient regarding her baseline activity level prior to surgery. DCP assessment completed with information currently available. Patient is a 40 year old female who admitted yesterday morning to the care of the surgical team. PCP: Dr. Sánchez. Payer: confirmed: [facility]. Patient came to the hospital for surgical procedures. She had a cystoscopy bilateral ureteral stents, as well as laparoscopic sigmoid colon resection, secondary to diverticulitis. Met with patient in her room. She is alert and oriented, she was sitting up in her bed. Stated that her surgeries had been planned for a while. Confirmed that she lives with her Rodo, who was in the room, and her two children, 5 & 13. She is independent at baseline. P: DCP to continue to follow for any needs. She should be able to go home when she is medically stable. Katherine Forrest RN/Vibration Engineer
--- NOTE | 2020-04-04 10:39 | PT.IIE ---
Current Diagnoses Diverticulitis of large intestine without perforation or abscess without bleeding (04/03/20) Diverticulitis of intestine, part unspecified, without perforation or abscess without bleeding (04/03/20) Residual hemorrhoidal skin tags (04/03/20) Surgery Performed Operation Date: 04/03/20 07:45 Actual Procedures s Cystoscopy w/ Placement of Localizing Ureteral Stents,(Bilateral) - Laurita Atwood MD p Laparoscopic colon resection-Converted to Open, removal of anal skin tag(Not Applicable) - Ricco Duncan MD Surgical History (Last Reviewed 03/30/20 @ 12:26 by Ricco Duncan MD) History of History of colonoscopy (02/08/20) History of hysterectomy for benign disease (2010) History of tonsillectomy Hx of hysterectomy Hx of LASIK (2001) Medical History (Last Reviewed 03/30/20 @ 12:26 by Ricco Duncan MD) Asthma Diverticulitis large intestine Diverticulitis of large intestine without complication Irregular heartbeat Physical Therapy Inpatient Evaluation/Re-Eval M1 PT/OT-IP Prior Functional Status Start: 04/03/20 11:31 Freq: NEEDED Status: Active Protocol: Document 04/04/20 10:39 AB (Rec: 04/04/20 12:38 AB [id number]) Medical Review Prior Functional Status Medical History Reviewed Yes Communication able to make needs known Mobility and Gait pt stated that she is indpendent with all mobilities and ambulation without AD Social History Household Members spouse,children Living Arrangements House Number of Floors (Floors) One Floor Number of Stairs To Enter/Railing? 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 M2 PT-IP Current Condition Start: 04/03/20 11:31 Freq: NEEDED Status: Active Protocol: Document 04/04/20 10:39 AB (Rec: 04/04/20 12:38 AB [email or web address]) Physical Therapy Current Condition Current Condition Evaluation Date 04/04/20 Treatment Diagnosis s/p partial colectomy; difficulty in walking Onset Date Precautions Abdominal Surgery Precautions Log Roll,Lifting Restrictions, Gait Belt above Incisional Area M3 PT-IP Subjective Start: 04/03/20 11:31 Freq: NEEDED Status: Active Protocol: Document 04/04/20 10:39 AB (Rec: 04/04/20 12:38 AB [email or web address]) Subjective Physical Therapy Visit Type Type Initial Evaluation Visit Start Time 10:39 Visit Stop Time 11:15 Total Visit Minutes 36 Number of CARD MAKER Visits 0 Physical Therapy Visit Comments Patient Comments pt is agreeable to do PT Therapy Pain Assessment Pain When Pain Assessed At Rest Pain Present Pain Present Pain Reported Location Abdomen Intensity 2 Scale Used 4/10 with mobility Pain Management Techniques Apply Cold,Distraction, Modification of Treatment,Re- positioning,Timing of Activity with Medications M4 PT-IP Mobility and Gait Start: 04/03/20 11:31 Freq: NEEDED Status: Active Protocol: Document 04/04/20 10:39 AB (Rec: 04/04/20 12:38 AB [email or web address]) PT-Bed Mobility Assessment Rolling Type of Rolling Log Rolling Level of Assist Standby Assistance Supine to Sit Supine to Sit Standby Assistance,1 Person Assistance,Head of Bed Elevated,Bedrails PT-Transfer Assessment Sit to and From Stand Sit to and from Stand Minimal Assistance,Use of Upper Extremities Equipment Transfer Assistive Device Gait Belt,Front Wheeled Walker Orthotic/Prosthetic Devices or Brace: No Transfers Transfer Destination Chair Transfer Technique Stand Step Pivot Transfer Ability Level of Assist Minimal Assistance,Moderate Assistance,1 Person Assistance ,Use of Upper Extremities Comments Mobility Comments educated on abdominal precautions and log roll bed mobility. completed supine to sit using bed rail SBA. pt was able to sit on EOB SBA. c /o increase pain. completed sit to stand min A but refused to ambulate due to increasing pain but agreed to transfer to chair and completed with min to mod A using FWW with LOB posteriorly requiring mod A for stability. positioned pt on chair. call light and table placed within reach. Gait Assessment Comments Gait Comments able to take steps during transfer using FWW PT-Balance Assessment Sitting Balance and Reactions Static Sitting Balance Ability Good Dynamic Sitting Balance Ability Good Standing Balance and Reactions Static Standing Balance Ability Fair Dynamic Standing Balance Ability Fair Device Used FWW M5 PT-IP Objective Assessments Start: 04/03/20 11:31 Freq: NEEDED Status: Active Protocol: Document 04/04/20 10:39 AB (Rec: 04/04/20 12:38 AB [email or web address]) Orientation Orientation/Cognition Level of Alertness Alert Orientation Name,Place,Situation Language Function Ability No Deficits Noted Safety Awareness Decreased Safety Awareness Memory Description No Deficits Noted Gross Range of Motion Lower Extremity ROM Assessment Within Functional Limits Strength Lower Extremity Strength Assessment Within Functional Limits Coordination Assessment Gross Coordination Gross Coordination WNL Sensation Assessment Sensation Gross Sensation WNL Muscle Tone Muscle Tone WNL Yes M6 PT-IP Treatment Start: 04/03/20 11:31 Freq: NEEDED Status: Active Protocol: Document 04/04/20 10:39 AB (Rec: 04/04/20 12:38 AB [email or web address]) Physical Therapy Treatment Education Education Provided Precautions,Safety M7 PT-IP Assessment and Plan Start: 04/03/20 11:31 Freq: NEEDED Status: Active Protocol: Document 04/04/20 10:39 AB (Rec: 04/04/20 12:38 AB [email or web address]) PT Summary Assessment and Plan Potential Rehabilitation Potential Good Status of Condition at Evaluation Evolving Summary Impairments Pain,ROM,Strength,Balance, Coordination,Sensation,Tone, Cognition,Bed Mobility, Transfers,Gait,Activity Tolerance Assessment Summary pt requiring min to mod A with mobility but unable to ambulate due to c/o increase abdominal pain. pt plans to go home with family to assist her. will continue to assess progress for safe d/c. Goals Bed Mobility Goal Independent Transfer Goal Independent,Front Wheeled Walker Gait Goal Independent,Front Wheel Walker Gait Distance 200 Other Goals improve ambulation without AD 300 ft SBA complete up/down 1 step without AD SBA Days to Meet Goals 10 Frequency of Treatment Frequency Of Treatment Once a Day Treatment Plan Physical Therapy Treatment Plan Bed Mobility Training,Transfer Training,Gait Training, Therapeutic Exercise,Balance Retraining,Post Op Education, Discharge Planning,Hot or Cold Pack,Neuromuscular Re-ed, Coordination Retraining,Manual Therapy Other Recommendations and Next Treatment ambulation Focus Recommendations To Nursing Amount of Assist Needed 1 Person Assist Discharge Recommendations PT Discharge Recommendations Home with Assistance Equipment Needed for Home Before FWW if not safe without AD Discharge Transportation Needs at Discharge Private Vehicle
[2020-04-04] MEDS: ENOXAPARIN 40 MG/0.4 ML SYRINGE SUBCUT (12:07)
[2020-04-04] MEDS: FENT 2MCG/ML BUPIV 0.125% EPI 200 MCG/100 ML PLAST..BAG 4 MCG EPIDURAL (14:34)
--- NOTE | 2020-04-04 18:02 | PC.NURSE ---
Pt with epidural in place, running at 4 ml/hr, initially complaining of pain up to 6/10, block only appreciated on L thigh, no block on R side. Pt had just been up in chair for several hours, and rate had been reduced to 4 ml/hr on dayshift to aid safe transfer. Pt encouraged to use PCEA. Pt reported increased epidural block and pain down to 0-2/10 after a total of 4 uses of PCEA. Pt able to bend knees, no motor impairment noted at this time. Post op incisions CDI, small amount of old serosang drainage on midline dressing. Pt remains on RA, SpO2 mid 90s, lungs CTA. Using IS as directed. Pt with VSS, mild hypertension to SBP 140s when pt was in pain, now down to 120s with pt's pain well-controlled. Pt denies nausea. Hypoactive BTs in all quadrants. Pt reports that she has been burping, and thought that she might have passed gas last night, but is not entirely certain. Tolerating CLD. Pt with indwelling catheter in place while epidural is infusing. Hematuria from post-op ureteral stents clearing. Adequate volume of urine, on post-op IV fluids. Pt remains on epidural gtts, no motor impairment noted at this time, but sensory impairment in bilateral LE. Fall risk. Pt educated about calling for assistance for transferring. Call light in reach. Will continue to monitor, notify MD with changes.
--- NOTE | 2020-04-04 18:36 | PM.PNPO.1 ---
Subjective Subjective Date Patient Seen: 04/04/20 Time Patient Seen: 18:36 Interval history: The patient is a woman who underwent a sigmoid resection with a primary anastomosis. Pain is well controlled except when she does a lot of moving. Epidural seems to be working well. She is tolerating p.o. liquids without nausea. Exam Vital Signs (past 8 hours): - 04/04/20 11:00 04/04/20 15:54 Temperature 97.9 F Pulse Rate 85 75 Respiratory Rate 16 21 Blood Pressure 120/67 179/88 H Pulse Oximetry 93 Oxygen Delivery Method Room Air Oxygen Flow Rate 0 Narrative Exam Narrative: Very good respiratory effort. Heart regular rate and rhythm without murmur gallop. Lungs are clear. Abdomen is protuberant soft. Dressings are intact. Vital signs are noted. Urine output is adequate. Has cleared. Objective Labs Result Diagrams: 04/04/20 05:03 04/04/20 05:03 Labs: Laboratory Results - last 24 hr 04/03/20 04/04/20 04/04/20 17:40 05:03 05:03 WBC 16.3 H RBC 3.80 L Hgb 12.0 Hct 35.7 L MCV 93.9 MCH 31.5 MCHC 33.6 RDW 13.1 Plt Count 282 Neut % (Auto) 86.0 H Lymph % (Auto) 9.0 L Weston % (Auto) 4.7 Eos % (Auto) 0.0 L Baso % (Auto) 0.3 Neut # (Auto) 93172 H Lymph # (Auto) 1500 Weston # (Auto) 800 Eos # (Auto) 0 Baso # (Auto) 0 Sodium 135 L Potassium 4.0 Chloride 109 H Carbon Dioxide 26 BUN 9 Creatinine 0.74 Estimated GFR > 60.0 BUN/Creatinine Ratio 12.2 Glucose 99 Calcium 8.0 L Total Bilirubin 0.4 AST 38 H ALT 17 Alkaline Phosphatase 51 Total Protein 5.3 L Albumin 2.8 L Globulin 2.5 Albumin/Globulin Ratio 1.1 Nasal Screen MRSA (PCR) Negative for mrsa Assessment & Plan Post-op Postoperative Procedures: Procedures Operation Date: 04/03/20 07:45 Actual Procedures Side Surgeon s Cystoscopy w/ Placement of Localizing Ureteral Stents, Bilateral Laurita Atwood MD p Laparoscopic colon resection-Converted to Open, removal of anal skin tag Not Applicable Ricco Duncan MD Postoperative status: doing well Postoperative plan narrative: Continue epidural. Labs in the morning. Continue to work on deep breathing. Continue ambulating. Continue DVT prophylaxis. Continue clear liquids tomorrow morning.
[2020-04-04] MEDS: DEXTROSE 5%-LACTATED RINGERS 1,000 ML 125 ML IV (19:15)
[2020-04-05 00:32] VITALS: BP 139/85; PULSE 85; RESP 18; TEMP 36.6; O2SAT 97
[2020-04-05] MEDS: DEXTROSE 5%-LACTATED RINGERS 1,000 ML 125 ML IV ×3 (02:27→18:31)
[2020-04-05 05:00] VITALS: BP 138/83; PULSE 89; RESP 18; TEMP 36.6; O2SAT 97
[2020-04-05 05:23] LABS: Add Manual Diff / Slide Review NO; Basophils Absolute Auto 100 /uL (0-100); Basophils Percent Auto 0.6 % (0-2); Eosinophils Absolute Auto 0 /uL (0-450); Eosinophils Percent Auto 0.3 % (2-4); Hemoglobin 12.3 g/dL (12.0-16.0); Lymphocytes Absolute Auto 2700 /uL (1100-4500); Lymphocytes Percent Auto 27.4 % (25-40); Mean Corpuscular HGB Conc 33.3 % (30-36); Mean Corpuscular Hemoglobin 31.5 PG (26-34); Mean Corpuscular Volume 94.5 fL (80-100); Monocytes Absolute Auto 600 /uL (0-900); Monocytes Percent Auto 6.4 % (3-14); Neutrophils Absolute Auto 6500 /uL (1500-7000); Neutrophils Percent Auto 65.3 % (50-75); Platelet Count 242 X10^3/uL (150-400); Red Blood Cell Count 3.91 X10^6/uL (4.0-5.2); Red Cell Distribution Width 13.1 % (11.6-14.8); White Blood Cell Count 9.9 X10^3/uL (4.5-11.0)
[2020-04-05 05:33] LABS: BUN Creatinine Ratio 14.5 (6-22); Blood Urea Nitrogen 10 mg/dL (7-17); Calcium 8.1 mg/dL (8.4-10.2); Carbon Dioxide 30 mmol/L (22-32); Chloride 107 mmol/L (98-107); Estimated Glomerular Filt Rate > 60.0 mL/min (>60); Glucose 100 mg/dL (70-100); HEMOLYSIS < 15 (0-50); Magnesium 1.9 mg/dL (1.6-2.3); Potassium 3.9 mmol/L (3.4-5.1); Sodium 137 mmol/L (137-145)
--- NOTE | 2020-04-05 05:33 | PC.NURSE ---
Addendum entered by Tiffany De R.N. 04/05/20 05:47: Patient states block is felt up to umbilicus. Patient able to move all extremities. Pineda draining great UOP. No complaints of N/V, no flatus passed at this time. Bowel sounds hypoactive. Call light in reach, will continue to monitor. Original Note: acute care physical therapist note: Patient slept well throughout shift, resting comfortably with epidural running at 4 mL/hr. Patient with PCEA use x1.
[2020-04-05 08:00] VITALS: BP 133/84; PULSE 85; RESP 14; TEMP 37.5; O2SAT 97
--- NOTE | 2020-04-05 09:32 | PT.IPTN ---
Current Diagnoses Diverticulitis of large intestine without perforation or abscess without bleeding (04/03/20) Diverticulitis of intestine, part unspecified, without perforation or abscess without bleeding (04/03/20) Residual hemorrhoidal skin tags (04/03/20) Surgery Performed Operation Date: 04/03/20 07:45 Actual Procedures s Cystoscopy w/ Placement of Localizing Ureteral Stents,(Bilateral) - Laurita Atwood MD p Laparoscopic colon resection-Converted to Open, removal of anal skin tag(Not Applicable) - Ricco Duncan MD Physical Therapy Treatment Note M2 PT-IP Current Condition Start: 04/03/20 11:31 Freq: NEEDED Status: Active Protocol: Document 04/04/20 10:39 AB (Rec: 04/04/20 12:38 AB [email or web address]) Physical Therapy Current Condition Current Condition Evaluation Date 04/04/20 Treatment Diagnosis s/p partial colectomy; difficulty in walking Onset Date 11111/05 Precautions Abdominal Surgery Precautions Log Roll,Lifting Restrictions, Gait Belt above Incisional Area M3 PT-IP Subjective Start: 04/03/20 11:31 Freq: NEEDED Status: Active Protocol: Document 04/05/20 09:22 AW (Rec: 04/05/20 09:32 AW [id number]) Subjective Physical Therapy Visit Type Type Treatment Note Visit Start Time 08:55 Visit Stop Time 09:20 Total Visit Minutes 25 Notes Pt has epidural for pain management. Number of ADJUSTER PIANO ACTION Visits 0 Physical Therapy Visit Comments Patient Comments The epidural is effective for my left side but not as much on my right. Therapy Pain Assessment Pain When Pain Assessed During Mobility Pain Present Pain Present Pain Reported Location headache Intensity 3 Scale Used Numeric (0 - 10) Abdomen Intensity 3 Scale Used Numeric (0 - 10) Pain Management Techniques Distraction,Re-positioning, Timing of Activity with Medications M4 PT-IP Mobility and Gait Start: 04/03/20 11:31 Freq: NEEDED Status: Active Protocol: Document 04/05/20 09:22 AW (Rec: 04/05/20 09:32 AW [id number]) PT-Bed Mobility Assessment Rolling Type of Rolling Log Rolling,Roll to Left Level of Assist Standby Assistance Supine to Sit Supine to Sit Standby Assistance,1 Person Assistance,Bedrails PT-Transfer Assessment Sit to and From Stand Sit to and from Stand Contact Guard Assistance,Use of Upper Extremities Equipment Transfer Assistive Device Gait Belt,Front Wheeled Walker Orthotic/Prosthetic Devices or Brace: No Transfers Transfer Destination Chair Transfer Technique pt ambulated with FWW Transfer Ability Level of Assist Contact Guard Assistance,1 Person Assistance,Use of Upper Extremities Comments Mobility Comments With HOB flat, pt log rolled to her left side and completed sidelying to sit SBA with verbal cues. She sat EOB SBA and then stood from the bed in lowest position CGA. She stood with the FWW and practiced gentle scapular retraction before ambulating around the room with FWW CGA and assist for line managment. After ambulating a total of 40 feet in the room, pt transferred to the chair with good control of descent CGA. Pt was positioned with legs elevated for comfort, call light and all needs in reach. Gait Assessment Gait Gait Assistance Required: Contact Guard Assist Distance (Feet) 40 Assistive Devices Assistive Device Gait Belt,Front Wheeled Walker Orthotic/Prosthetic Devices or Brace: No Gait Deviations General Gait Pattern Antalgic,Decreased Stride Length,Decreased Feet Clearance,Flexed Trunk Factors Limiting Gait Function Factors Limiting Gait Function Decreased Activity Tolerance, Decreased Sensation,Decreased Strength,Limited Range of Motion,Pain,Poor Balance Comments Gait Comments Gait was slow but steady with FWW. Pt ambulates with mild trunk flexion out of pain avoidance. PT-Balance Assessment Sitting Balance and Reactions Static Sitting Balance Ability Good Dynamic Sitting Balance Ability Good Standing Balance and Reactions Static Standing Balance Ability Good Dynamic Standing Balance Ability Fair Device Used FWW M5 PT-IP Objective Assessments Start: 04/03/20 11:31 Freq: NEEDED Status: Active Protocol: Document 04/04/20 10:39 AB (Rec: 04/04/20 12:38 AB [email or web address]) Orientation Orientation/Cognition Level of Alertness Alert Orientation Name,Place,Situation Language Function Ability No Deficits Noted Safety Awareness Decreased Safety Awareness Memory Description No Deficits Noted Gross Range of Motion Lower Extremity ROM Assessment Within Functional Limits Strength Lower Extremity Strength Assessment Within Functional Limits Coordination Assessment Gross Coordination Gross Coordination WNL Sensation Assessment Sensation Gross Sensation WNL Muscle Tone Muscle Tone WNL Yes M6 PT-IP Treatment Start: 04/03/20 11:31 Freq: NEEDED Status: Active Protocol: Document 04/05/20 09:22 AW (Rec: 04/05/20 09:32 AW [id number]) Physical Therapy Treatment Education Education Provided Precautions,Safety M7 PT-IP Assessment and Plan Start: 04/03/20 11:31 Freq: NEEDED Status: Active Protocol: Document 04/05/20 09:22 AW (Rec: 04/05/20 09:32 AW [id number]) PT Summary Assessment and Plan Potential Rehabilitation Potential Good Status of Condition at Evaluation Evolving Summary Impairments Pain,ROM,Strength,Balance, Coordination,Sensation,Tone, Cognition,Bed Mobility, Transfers,Gait,Activity Tolerance Assessment Summary Pt required decreased level of assist today and showed increased capacity for activity. She remains limited due to activity tolerance but PT anticipates discharge to home with family assist will be safe plan. Goals Bed Mobility Goal Independent Transfer Goal Independent,Front Wheeled Walker Gait Goal Independent,Front Wheel Walker Gait Distance 200 Other Goals improve ambulation without AD 300 ft SBA complete up/down 1 step without AD SBA Days to Meet Goals 10 Frequency of Treatment Frequency Of Treatment Once a Day Treatment Plan Physical Therapy Treatment Plan Bed Mobility Training,Transfer Training,Gait Training, Therapeutic Exercise,Balance Retraining,Post Op Education, Discharge Planning,Hot or Cold Pack,Neuromuscular Re-ed, Coordination Retraining,Manual Therapy Other Recommendations and Next Treatment ambulation Focus Recommendations To Nursing Amount of Assist Needed 1 Person Assist Discharge Recommendations PT Discharge Recommendations Home with Assistance Equipment Needed for Home Before FWW if not safe without AD Discharge
[2020-04-05] MEDS: FENT 2MCG/ML BUPIV 0.125% EPI 200 MCG/100 ML PLAST..BAG 5 MCG EPIDURAL (09:52)
--- NOTE | 2020-04-05 10:22 | PM.PN.1 ---
Subjective Subjective Date Patient Seen: 04/05/20 Time Patient Seen: 08:00 Interval history: POD#2 partial colon resection, tolerating PO clears, passing flatus. Pt reports moderate pain control with indwelling epidural catheter. Yesterday, rate was decreased from 6mL\h to 4 due to lower extremity weakness. LE movement improved and pt was able to sit yesterday with assisted transfer. Pain, however, was worse. She used the PCEA multiple times yesterday, and once overnight with good relief. She does report consistent improvement with PCEA bolus, though temporary. Exam Vital Signs (past 8 hours): - 04/05/20 05:00 Temperature 97.8 F Pulse Rate 89 Respiratory Rate 18 Blood Pressure 138/83 Pulse Oximetry 97 Oxygen Delivery Method Room Air Oxygen Flow Rate 0 Narrative Exam Narrative: Pt awake, alert, no distress. TEP dressing c/d/i, no pain, erythema at the site. Block tested to cold sensation revealed roughly T9-L3 LEFT-sided block. No discernable difference to cold sensation on the right. Objective Labs Result Diagrams: 04/05/20 04:58 04/05/20 04:58 Labs: Laboratory Results - last 24 hr 04/05/20 04/05/20 04:58 04:58 WBC 9.9 RBC 3.91 L Hgb 12.3 Hct 37.0 MCV 94.5 MCH 31.5 MCHC 33.3 RDW 13.1 Plt Count 242 Neut % (Auto) 65.3 D Lymph % (Auto) 27.4 [place] % (Auto) 6.4 Eos % (Auto) 0.3 L Baso % (Auto) 0.6 Neut # (Auto) 6500 Lymph # (Auto) 2700 [place] # (Auto) 600 Eos # (Auto) 0 Baso # (Auto) 100 Sodium 137 Potassium 3.9 Chloride 107 Carbon Dioxide 30 BUN 10 Creatinine 0.69 Estimated GFR > 60.0 BUN/Creatinine Ratio 14.5 Glucose 100 Calcium 8.1 L Magnesium 1.9 Assessment & Plan Assessment & Plan narrative: Adequate pain control with PCEA. Increased rate from 4 to 5mL/h to minimize use of PCEA bolus. Pt satisfied with current control. Will continue epidural and coordinate with General Surgery. Pt currently on QD lovenox dosing. Ok for indwelling catheter. Will ensure 12h after last dose before removing catheter when that time comes.
--- NOTE | 2020-04-05 12:13 | P.PN_ITS ---
Subjective Subjective Date Patient Seen: 04/05/20 Time Patient Seen: 12:02 Interval history: The patient feels OK. Has been up and about in the room. Pain seems well controlled. Tolerating liquids. Had a watery bowel movement. Exam Vital Signs (past 8 hours): - 04/05/20 05:00 04/05/20 08:00 Temperature 97.8 F 99.5 F Pulse Rate 89 85 Respiratory Rate 18 14 Blood Pressure 138/83 133/84 Pulse Oximetry 97 97 Oxygen Delivery Method Room Air Oxygen Flow Rate 0 Narrative Exam Narrative: lungs clear with excellent effort. Heart RRR. Abdomen soft. Incisions intact. no cellulitis. Steristrips intact. Objective Labs Result Diagrams: 04/05/20 04:58 04/05/20 04:58 Labs: Laboratory Results - last 24 hr 04/05/20 04/05/20 04:58 04:58 WBC 9.9 RBC 3.91 L Hgb 12.3 Hct 37.0 MCV 94.5 MCH 31.5 MCHC 33.3 RDW 13.1 Plt Count 242 Neut % (Auto) 65.3 D Lymph % (Auto) 27.4 [place] % (Auto) 6.4 Eos % (Auto) 0.3 L Baso % (Auto) 0.6 Neut # (Auto) 6500 Lymph # (Auto) 2700 [place] # (Auto) 600 Eos # (Auto) 0 Baso # (Auto) 100 Sodium 137 Potassium 3.9 Chloride 107 Carbon Dioxide 30 BUN 10 Creatinine 0.69 Estimated GFR > 60.0 BUN/Creatinine Ratio 14.5 Glucose 100 Calcium 8.1 L Magnesium 1.9 Assessment & Plan Post-op Postoperative Procedures: Procedures Operation Date: 04/03/20 07:45 Actual Procedures Side Surgeon s Cystoscopy w/ Placement of Localizing Ureteral Stents, Bilateral Laurita Atwood MD p Laparoscopic colon resection-Converted to Open, removal of anal skin tag Not Applicable Ricco Duncan MD Postoperative status: doing well Postoperative plan narrative: will d/c epiduiral tomorrow AM as per discussion with Dr. Cross. Then can remove egan. Advanced diet to full liquids. If tolerated general diet tomorrow. Possible d/c tomorrow afternoon. Shower after epidural out.
[2020-04-05 15:33] VITALS: BP 123/83; PULSE 100; RESP 18; TEMP 37.2; O2SAT 98
[2020-04-05 19:46] VITALS: BP 123/81; PULSE 76; RESP 18; TEMP 36.4; O2SAT 97
[2020-04-06 00:35] VITALS: BP 126/81; PULSE 81; RESP 16; TEMP 36.1; O2SAT 98
[2020-04-06] MEDS: FENT 2MCG/ML BUPIV 0.125% EPI 200 MCG/100 ML PLAST..BAG 5 MCG EPIDURAL (02:05)
--- NOTE | 2020-04-06 05:06 | PM.DS.1 ---
History of Present Illness History of Present Illness Date Patient Seen: 04/06/20 Chief complaint: Lap Colectomy Narrative: The patient is a woman who was admitted for resection of his the segment of her colon involved with repeated episodes of diverticulitis. She had an outpatient bowel prep that included oral antibiotics. Discharge Providers Provider Date of admission: 04/03/20 06:41 Discharge Date: 04/06/20 Primary care physician: Blaze Sánchez MD Consults: 04/03/20 08:37 Consult to Physical Therapy Evaluate & Treat Comment: T11-12 epidural for POPM, s/p partial colectomy Physician Instructions: Evaluate and Treat 04/03/20 16:03 Consult to Discharge Planning Routine Comment: 04/03/20 16:07 Consult to Physical Therapy Evaluate & Treat Comment: T11-12 epidural for POPM s/p partial colectomy Physician Instructions: Evaluate and Treat Discharge provider: Ricco Duncan MD Summary Hospital Course Discharge Diagnosis: Chronic intermittent diverticulitis Obesity with a BMI of 39 Hospital Course: The patient was taken the operating room and underwent a laparoscopic resection of her sigmoid colon. Two separate segments were ultimately removed. One primary anastomosis was performed. Postoperatively her pain control was managed with an epidural catheter with excellent result. She tolerated a diet and was gradually advanced. She began having bowel movements. Her epidural catheter and Pineda catheter were removed postoperative day 3. She was discharged tolerating a general diet with her pain control managed with oral medication to follow up in the office Status at Discharge Cognitive/behavioral status at discharge: oriented Functional status at discharge: independent ambulation Overall status at discharge: patient is progressing back to baseline Exam Vital Signs (past 8 hours): - 04/06/20 00:35 Temperature 96.9 F L Pulse Rate 81 Respiratory Rate 16 Blood Pressure 126/81 Pulse Oximetry 98 Oxygen Delivery Method Room Air Oxygen Flow Rate 0 Narrative Exam Narrative: Lungs clear excellent effort. Heart regular rate and rhythm without murmur gallop. Abdomen is protuberant soft. She is appropriately tender. Wounds are intact as and her Steri-Strips are in place. Objective Labs Result Diagrams: 04/05/20 04:58 04/05/20 04:58 Labs: Laboratory Results - last 24 hr 04/05/20 04/05/20 04:58 04:58 WBC 9.9 RBC 3.91 L Hgb 12.3 Hct 37.0 MCV 94.5 MCH 31.5 MCHC 33.3 RDW 13.1 Plt Count 242 Neut % (Auto) 65.3 D Lymph % (Auto) 27.4 [place] % (Auto) 6.4 Eos % (Auto) 0.3 L Baso % (Auto) 0.6 Neut # (Auto) 6500 Lymph # (Auto) 2700 [place] # (Auto) 600 Eos # (Auto) 0 Baso # (Auto) 100 Sodium 137 Potassium 3.9 Chloride 107 Carbon Dioxide 30 BUN 10 Creatinine 0.69 Estimated GFR > 60.0 BUN/Creatinine Ratio 14.5 Glucose 100 Calcium 8.1 L Magnesium 1.9 Discharge Plan Discharge Plan Patient Disposition: Home Provider Discharge Comment: The pain medication I prescribed may constipate you. You should take a laxative like milk of magnesia if that occurs. Discharge orders & Medications Prescriptions: New oxycodone 5 mg tablet See Rx Instructions .ROUTE .COMPLEX PRN (Reason: painful procedure) Qty: 30 RF: 0 gabapentin 300 mg capsule 300 mg PO BID Qty: 20 RF: 0 ibuprofen 600 mg tablet 600 mg PO QID Qty: 20 RF: 1 Follow up/Referrals: Blaze Sánchez MD [Primary Care Provider] - Ricco Duncan MD [Physician] - As previously scheduled (If you do not have a follow-up appointment please call my office and make 1. If you need to reach a doctor please call our office. If the office is closed listen to the entire message and it will direct to page the doctor on-call for our practice ) Diet/Activity/Treatments Diet: Diet as Tolerated Activity: Do not drive into you are pain-free off medication. Do not lift over 10 lb or strain for the next 6 weeks. You may walk. No pool or tub for at least 2 weeks. You may shower however. Skin/Wound/Dressing Care Report to your healthcare provider any signs of infection, such as:: increased pain, unusual drainage and unusual redness Dressing: No dressing is necessary. Visit Report/Discharge Packet Instructions: DI for Colectomy Discharge Data Primary Care Provider: Blaze Sánchez
[2020-04-06 05:28] VITALS: BP 127/72; PULSE 93; RESP 16; TEMP 36.2; O2SAT 97
[2020-04-06 08:00] VITALS: BP 132/85; PULSE 89; RESP 16; TEMP 36.3; O2SAT 99
--- NOTE | 2020-04-06 09:37 | PC.NURSE ---
Addendum entered by Angeline Arnold R.N. 04/06/20 15:26: DC plan reviewed all questions addressed and IV removed. Pt wheeled to private vehicle. Addendum entered by Angeline Arnold R.N. 04/06/20 11:20: Cdiff negative, update to Patient and . Pt has showered. Percocet effective. Pineda out and Pt voiding, mild stress incont. noted. Brief in place. IV SL. Pt hopefult for d/c later today. Original Note: Am shift Pt has had education about POC Pineda and epidural removal, shower and diet toleration, and potential for d/c later today. Up to BR, liquid stooling, sent for cdiff. IV SL. Pineda 850 mls pale yellow urine. Remvoed, Epidural cath removed, pressure applied. Pt is up ambulating with PT in minor. Verbalizes readiness for d/c home. PO pain control provided.
[2020-04-06] MEDS: OXYCODONE/ACETAMINOPHEN 5/325 TABLET 2 TAB PO ×2 (10:00→14:54)
--- NOTE | 2020-04-06 10:03 | PT.IPTN ---
Current Diagnoses Diverticulitis of large intestine without perforation or abscess without bleeding (04/03/20) Diverticulitis of intestine, part unspecified, without perforation or abscess without bleeding (04/03/20) Residual hemorrhoidal skin tags (04/03/20) Surgery Performed Operation Date: 04/03/20 07:45 Actual Procedures s Cystoscopy w/ Placement of Localizing Ureteral Stents,(Bilateral) - Laurita Atwood MD p Laparoscopic colon resection-Converted to Open, removal of anal skin tag(Not Applicable) - Ricco Duncan MD Physical Therapy Treatment Note M2 PT-IP Current Condition Start: 04/03/20 11:31 Freq: NEEDED Status: Active Protocol: Document 04/04/20 10:39 AB (Rec: 04/04/20 12:38 AB [email or web address]) Physical Therapy Current Condition Current Condition Evaluation Date 04/04/20 Treatment Diagnosis s/p partial colectomy; difficulty in walking Onset Date 11111/05 Precautions Abdominal Surgery Precautions Log Roll,Lifting Restrictions, Gait Belt above Incisional Area M3 PT-IP Subjective Start: 04/03/20 11:31 Freq: NEEDED Status: Active Protocol: Document 04/06/20 09:50 AW (Rec: 04/06/20 10:03 AW [id number]) Subjective Physical Therapy Visit Type Type Treatment Note Visit Start Time 09:20 Visit Stop Time 09:43 Total Visit Minutes 23 Notes Pineda and epidural d/c'd just prior to PT arrival. Number of PET COUNSELOR Visits 0 Physical Therapy Visit Comments Patient Comments My pain is just 1/10 but I did just hit the [facility] [facility] RECEPTIONIST before they removed the epidural. Therapy Pain Assessment Pain When Pain Assessed During Mobility Pain Present Pain Present Denied Pain Location Abdomen Intensity 1 Scale Used Numeric (0 - 10) Pain Management Techniques Distraction,Re-positioning, Timing of Activity with Medications M4 PT-IP Mobility and Gait Start: 04/03/20 11:31 Freq: NEEDED Status: Active Protocol: Document 04/06/20 09:50 AW (Rec: 04/06/20 10:03 AW [id number]) PT-Bed Mobility Assessment Rolling Type of Rolling Log Rolling,Roll to Left Level of Assist Standby Assistance Sit to Supine Sit to Supine Standby Assistance PT-Transfer Assessment Sit to and From Stand Sit to and from Stand Standby Assistance,Use of Upper Extremities Equipment Transfer Assistive Device None,Gait Belt,Front Wheeled Walker Orthotic/Prosthetic Devices or Brace: No Transfers Transfer Destination Bed Transfer Technique pt ambulated IND Transfer Ability Level of Assist Standby Assistance,1 Person Assistance,Use of Upper Extremities Comments Mobility Comments Pt was sitting up on the EOB as PT arrived. She completed sit to stand and stood with the FWW SBA. She donned her face mask and then ambulated in the halls 100 feet with FWW SBA. She then trialed ambulation without AD, walking another 120 feet SBA. Gait was slow but steady. Pt reported feeling guarded but safe without AD. She completed stair climbing and then returned to the room. She sat on the left side of the bed and transferred sit to sidelying with log roll to supine SBA. Pt was left in the bed with call light and all needs in reach. Gait Assessment Gait Gait Assistance Required: Standby Assistance Distance (Feet) 240 Assistive Devices Assistive Device None,Gait Belt,Front Wheeled Walker Orthotic/Prosthetic Devices or Brace: No Gait Deviations General Gait Pattern Antalgic,Decreased Stride Length,Decreased Feet Clearance,Flexed Trunk Factors Limiting Gait Function Factors Limiting Gait Function Decreased Activity Tolerance, Decreased Sensation,Decreased Strength,Limited Range of Motion,Pain Comments Gait Comments Gait improved with FWW and was safe/steady without AD. Pt agrees she will be able to manage household distances without AD but is agreeable to procuring one for longer distances if needed. PT-Balance Assessment Sitting Balance and Reactions Static Sitting Balance Ability Good Dynamic Sitting Balance Ability Good Standing Balance and Reactions Static Standing Balance Ability Good Dynamic Standing Balance Ability Good Device Used none M5 PT-IP Objective Assessments Start: 04/03/20 11:31 Freq: NEEDED Status: Active Protocol: Document 04/04/20 10:39 AB (Rec: 04/04/20 12:38 AB [email or web address]) Orientation Orientation/Cognition Level of Alertness Alert Orientation Name,Place,Situation Language Function Ability No Deficits Noted Safety Awareness Decreased Safety Awareness Memory Description No Deficits Noted Gross Range of Motion Lower Extremity ROM Assessment Within Functional Limits Strength Lower Extremity Strength Assessment Within Functional Limits Coordination Assessment Gross Coordination Gross Coordination WNL Sensation Assessment Sensation Gross Sensation WNL Muscle Tone Muscle Tone WNL Yes M6 PT-IP Treatment Start: 04/03/20 11:31 Freq: NEEDED Status: Active Protocol: Document 04/06/20 09:50 AW (Rec: 04/06/20 10:03 AW [id number]) Physical Therapy Treatment Education Education Provided Precautions,Safety Other Treatments Other Treatment Performed Provided DME supplier list and examples of raised toilet seat, FWW for her consideration. M7 PT-IP Assessment and Plan Start: 04/03/20 11:31 Freq: NEEDED Status: Active Protocol: Document 04/06/20 09:50 AW (Rec: 04/06/20 10:03 AW [id number]) PT Summary Assessment and Plan Potential Rehabilitation Potential Good Status of Condition at Evaluation Stable Summary Progress Towards Goals Progressing Toward Goals Assessment Summary Pt improved ambulation today to >100 feet without assistive device. She remains below baseline for functional capacity, stating she feels she is operating at ~40% of her normal. She will be able to manage household distances with SBA but is encouraged to consider a FWW for longer distances. PT provided DME supplier list and examples of raised toilet seats which pt states she may purchase online or from her local pharmacy. Pt is safe for discharge home with assist. Goals Bed Mobility Goal Independent Transfer Goal Independent,Front Wheeled Walker Gait Goal Independent,Front Wheel Walker Gait Distance 200 Other Goals improve ambulation without AD 300 ft SBA complete up/down 1 step without AD SBA Days to Meet Goals 6 Frequency of Treatment Frequency Of Treatment Once a Day Treatment Plan Physical Therapy Treatment Plan Bed Mobility Training,Transfer Training,Gait Training, Therapeutic Exercise,Balance Retraining,Post Op Education, Discharge Planning,Hot or Cold Pack,Neuromuscular Re-ed, Coordination Retraining,Manual Therapy Recommendations To Nursing Amount of Assist Needed 1 Person Assist Discharge Recommendations PT Discharge Recommendations Home with Assistance Equipment Needed for Home Before raised toilet seat, FWW per pt Discharge preference Transportation Needs at Discharge Private Vehicle
[2020-04-06 10:40] LABS: Clostridium Difficile Tox PCR Negative for C. diff
[2020-04-06 12:00] VITALS: BP 126/75; PULSE 94; RESP 18; TEMP 37.4; O2SAT 99
[2020-04-06] MEDS: GABAPENTIN 300 MG CAPSULE PO ×2 (13:24→14:54)
--- NOTE | 2020-04-06 13:27 | CM.DPC ---
DCP: continued: Case received, EMR reviewed and met now with pt and her Rodo. Dr. Duncan was here early this morning and put in a d/c order for home. RN Angeline states she though that Dr. Guzman was going to see pt today before d/c and that pt did need to stay on for lunch to make sure she tolerated the diet/did well: confirmed now by Angeline. PT worked with pt today and left it up to pt as to [employer]. Pt confirms she does not feel the need for this device. Pt will now go and get medications at the pharmacy and return to pick pt up so that pt will not have to do more than go directly home. Followup planned with Dr. Duncan in clinic.
== END 2020-04-06 15:27 | disposition home or self-care (01) | DRG 331 ==
LOC: AC 06:42 → ICU 09:34
PROVIDERS: Specialist; Admitting Provider Specialist; PCP Surgery; Referring Provider Specialist; Visit Provider Specialist
PROC: 0T9B80Z Drainage of Bladder with Drainage Device, Via Natural or Artificial Opening Endoscopic (ICD-10-PCS; principal; 2020-04-03 07:45)
PROC: 0DTE0ZZ Resection of Large Intestine, Open Approach (ICD-10-PCS; 2020-04-03 07:45)
DX: K57.32 Diverticulitis of large intestine without perforation or abscess without bleeding (principal); J45.909 Unspecified asthma, uncomplicated; E66.9 Obesity, unspecified; Z68.39 Body mass index [BMI] 39.0-39.9, adult; K64.4 Residual hemorrhoidal skin tags
CPT/HCPCS: 36415; 44204; 52332; 80048; 80053; 83735; 85025; 87493; 87797; 94762; 97116; 97162; 97530; 97535; J0131; J1100; J1170; J1650; J2250; J2405; J2543; J2704; J3010; J7121

== ENCOUNTER → 2021-02-26 12:28 | Outpatient (CLI) | payer OTHER, SELFPAY ==
[2020-04-03 16:00] VITALS: BMI 39.3
--- NOTE | 2021-02-26 | DI.MG.S_ITS ---
BILATERAL DIGITAL DIAGNOSTIC MAMMOGRAM 3D/2D: 02/26/2021 CLINICAL: Breasrt lumps. Comparison is made to exams dated: 08/21/2020 mammogram - [facility] and 01/31/2012 mammogram - [facility]. There are scattered fibroglandular elements in both breasts. There is a possible benign asymmetry in the left breast posterior depth lateral region seen on the craniocaudal view only. This is not seen in additional views. The mammographic appearance of the nipples is within normal limits. The patient denies eczema like rash. The mammographic technologist denies rash. No other significant masses, calcifications, or other findings are seen in either breast. IMPRESSION: BENIGN There is no mammographic evidence of malignancy. A 1 year screening mammogram is recommended. Exam findings were conveyed to the patient. Patient is advised to monitor for significant change. Clinical follow-up as needed for nipple changes. If a persistent rash develops, this can be further evaluated with skin biopsy. This exam was interpreted at Station ID: [id number]. NOTE: For mammograms, a report in lay terms will be sent to the patient. Approximately 15% of breast malignancies will not be visualized mammographically. In the management of a palpable breast mass, a negative mammogram must not discourage biopsy of a clinically suspicious lesion. Electronically Signed By: Kavon Del Toro M.D. [facility] [place]/:02/26/2021 13:39:55 letter sent: Clinical Evaluation ACR BI-RADS Category 2: Benign Finding(s) 3342F
== END ==
PROVIDERS: PCP Student in an Organized Health Care Education/Training Program; Referring Provider Student in an Organized Health Care Education/Training Program; Visit Provider Student in an Organized Health Care Education/Training Program
DX: N64.59 Other signs and symptoms in breast (principal)
CPT/HCPCS: 77066; G0279

== ENCOUNTER → 2022-04-30 12:35 | Outpatient (ROUT) | payer OTHER, SELFPAY ==
[2020-04-03 16:00] VITALS: BMI 39.3
[2022-04-30 13:59] LABS: Influenza A - CEPHEID Flu A NEGATIVE (NEGATIVE); Influenza B - CEPHEID Flu B NEGATIVE (NEGATIVE); Respiratory Syncytial Virus Negative (Negative)
[2022-04-30 14:00] LABS: COVID-19 CEPHEID 4-PLEX PCR Negative (Negative)
== END ==
PROVIDERS: PCP Student in an Organized Health Care Education/Training Program; Visit Provider Internal Medicine
DX: Z20.822 Contact with and (suspected) exposure to COVID-19 (principal)
CPT/HCPCS: 0241U

== ENCOUNTER 2023-08-12 06:41 | Day surgery (SDC) | payer OTHER, SELFPAY ==
[2020-04-03 16:00] VITALS: BMI 39.3
[2023-08-12 07:15] VITALS: BP 134/91; PULSE 81; RESP 18; TEMP 36.2; O2SAT 95
[2023-08-12] MEDS: LACTATED RINGERS 1,000 ML 42 ML IV (07:18)
--- NOTE | 2023-08-12 07:53 | P.HP_ITS ---
History of Present Illness History of Present Illness Date Patient Seen: 08/12/23 Chief complaint: Screening Colonoscopy Narrative: 43-year-old woman here for screening colonoscopy. History of diverticular disease status post multiple colectomies for such. Last colonoscopy several years ago. No family history of intestinal malignancy. No abdominal concerns today. [facility], LAT[facility] Medical History Irregular heartbeat Diverticulitis of large intestine without complication Asthma Diverticulitis large intestine Surgical History History of colonoscopy (02/08/20) History of tonsillectomy Hx of LASIK (2001) History of hysterectomy for benign disease (2010) History of Hx of hysterectomy Family History Father Hypertension Mother Hypertension Heart disease Diabetes mellitus Social History marital status: household members: spouse and children occupational status: employed Smoking Status: Never smoker alcohol intake: current substance use type: does not use Meds Home Medications and Allergies Allergies Allergy/AdvReac Type Severity Reaction Status Date / Time No Known Drug Allergies Allergy Verified 08/12/23 07:10 Exam Vital Signs (past 8 hours): - 08/12/23 07:15 Temperature 97.2 F L Pulse Rate 81 Respiratory Rate 18 Blood Pressure 134/91 H Pulse Oximetry 95 Oxygen Delivery Method Room Air Oxygen Delivery Method Room Air Narrative Exam Narrative: General adult woman alert oriented no acute distress Chest nonlabored respiration Extremities warm well perfused Assessment & Plan Assessment & Plan narrative: The patient requires colorectal screening and colonoscopy is recommended. Technical details were discussed. Risks, benefits, alternatives explained. Risks including but not limited to myocardial infarction, aspiration, bleeding, pain, missed lesion, incomplete examination, need for further radiographic studies, colonic perforation, and need for major abdominal surgery were discussed. All questions were answered to their satisfaction, and they are in agreement with this plan.
[2023-08-12 08:14] VITALS: BP 129/85; PULSE 66; RESP 14; TEMP 36.3; O2SAT 97
--- NOTE | 2023-08-12 08:15 | P.OP.COLON_ITS ---
Operative Date/Time/Diagnoses Date of procedure: 08/12/23 Time of procedure: 08:15 Pre-op diagnosis: Personal history of colonic polyps Procedure & Clinicians Study performed: Colonoscopy Same procedure as scheduled: Yes Indications: Colorectal screening Personal history of colonic polyps Surgeon: Fredo Yan Procedure Notes Procedure in detail: The history and physical was performed/updated and the patient is ASA class is 2. The procedure was discussed in detail with the patient. Potential risks complications including infection, bleeding, missed diagnosis, perforation, need for surgery, and were explained. Their questions were answered and informed consent was obtained. Patient was brought to the procedure room and placed standard monitoring equipment. The patient's vital signs were monitored continuously throughout the entire procedure. Prior to starting time-out was performed. The patient was placed in the left lateral recumbent position. Procedural sedation was administered by anesthesia. Examination began with a thorough inspection of the perianal area there was no evidence of fissures, fistulae, external hemorrhoids or cutaneous malignancy. The colonoscopy scope was then placed into the anal canal and was advanced to the cecum, which was identified by the ileocecal valve, the appendiceal orifice and the confluence of the taenia. The scope was then slowly withdrawn examining colon thoroughly in all directions, irrigating it of any residual stool. The scope was retroflexed within the rectum The patient tolerated the procedure well. They will be discharged once criteria are met. The prep was of good/excellent quality. The withdrawl time was 6 minutes. FINDINGS * Mild diverticulosis of the descending colon * Internal hemorrhoids * No polyps identified Impression: Normal colonoscopy Post-procedure Recommendations: Colonoscopy in 10 years Disposition: same day surgery
[2023-08-12 08:19] VITALS: BP 144/101; PULSE 69; RESP 16; O2SAT 100
[2023-08-12 08:24] VITALS: BP 147/90; PULSE 57; RESP 15; O2SAT 100
[2023-08-12 08:33] VITALS: BP 147/95; PULSE 61; RESP 15; TEMP 36.5; O2SAT 100
== END 2023-08-12 08:40 | disposition home or self-care (01) ==
PROVIDERS: PCP Family Medicine; Referring Provider Surgery; Visit Provider Surgery
PROC: 0DJD8ZZ Inspection of Lower Intestinal Tract, Via Natural or Artificial Opening Endoscopic (ICD-10-PCS; CPT 45378; principal; 2023-08-12 08:00)
DX: Z12.11 Encounter for screening for malignant neoplasm of colon (principal); Z86.010 Personal history of colon polyps; K57.30 Diverticulosis of large intestine without perforation or abscess without bleeding; K64.8 Other hemorrhoids
CPT/HCPCS: 45378; J2704